=== PATIENT | female | born 1985 | race Caucasian/White ===

== ENCOUNTER → 2017-03-23 | Outpatient (CLI) | payer OTHER ==
[~2017-03-23] MED LIST: CATHETER FLUSH 10 ML SYR IV PRN; HYDR1TAB PO; IOHEXOL 350 MG/ML 100 ML (OMNIPAQUE 350) VIAL IV ONE; LVT.025T PO; NS 100 ML (IVPB) BAG IV ONE
--- NOTE | 2017-03-23 13:23 | Diagnostic Imaging Report ---
PROCEDURE: CT neck soft tissue with contrast. TECHNIQUE: Multiple contiguous axial images were obtained through the neck after the administration of contrast. INDICATION: Neck pain. Difficulty swallowing. 75 mL of Omnipaque 350 is administered intravenously. FINDINGS: The parotid, the submandibular and thyroid glands appear unremarkable. The mucosal pharyngeal space is fairly symmetric with no focal mass seen. There is no lymphadenopathy noted in the cervical chain on either side. The jugular venous and the carotid arterial enhancement on both sides appear normal. The visualized portions of the paranasal sinuses appear clear. The lung apices appear clear. The osseous structures appear grossly unremarkable. IMPRESSION: Unremarkable exam. Dictated by: Dictated on workstation # [id number]
== END ==
LOC: RAD 12:27
PROVIDERS: ATTEND Nurse Practitioner Family
DX: M54.2 Cervicalgia (principal); R13.10 Dysphagia, unspecified
CPT/HCPCS: 70491

== ENCOUNTER → 2017-09-18 | Outpatient (CLI) | payer OTHER ==
[~2017-09-18] MED LIST changes: -CATHETER FLUSH 10 ML SYR IV PRN; -IOHEXOL 350 MG/ML 100 ML (OMNIPAQUE 350) VIAL IV ONE; -NS 100 ML (IVPB) BAG IV ONE
--- NOTE | 2017-09-18 13:36 | Diagnostic Imaging Report ---
INDICATION: Cough and congestion x3 weeks. Comparison with 02/12/2013. FINDINGS: The lungs are well aerated. There are no infiltrates present. There are no masses. The heart is not enlarged. There is no pulmonary edema. No pneumothorax or pleural effusions. No hilar adenopathy. No bony abnormalities. IMPRESSION: Normal PA and lateral chest. Report was faxed to office of Salma Julian by zack at 1:37 p.m. Dictated by: Dictated on workstation # [id number]
== END ==
LOC: RAD 13:11
PROVIDERS: ATTEND Nurse Practitioner Family
DX: R05 Cough (principal); R09.81 Nasal congestion
CPT/HCPCS: 71020

== ENCOUNTER 2019-05-05 07:54 | Outpatient (RCR) | payer OTHER | END 2019-08-03 | disposition home or self-care (01) | LOC: CARD 07:54 | PROVIDERS: ATTEND Nurse Practitioner Family | DX: R00.2 Palpitations (principal) | CPT/HCPCS: 93225; 93226 ==

== ENCOUNTER → 2019-08-17 | Outpatient (CLI) | payer OTHER ==
--- NOTE | 2019-08-17 12:56 | Diagnostic Imaging Report ---
PROCEDURE: US Non-ob pelvis comp/trans. TECHNIQUE: Multiple realtime grayscale images were obtained of the pelvis in various projections endovaginally. Transabdominal imaging was also performed. INDICATION: Pelvic pain. FINDINGS: The uterus measures 6.3 x 5.9 x 3.3 cm. Endometrium is 4 mm in thickness. Tiny echogenic focus within the endometrium is noted measuring 2 mm consistent with a tiny calcification. No myometrial mass is detected. Right ovary measures 3.1 x 3.2 x 1.9 cm and the left ovary measures 3.4 x 3.2 x 2.0 cm. The ovaries contain small follicles. There is blood flow to the ovaries. No adnexal mass or free fluid is seen. Left ovary does contain a 2.3 cm cyst. IMPRESSION: 2.3 cm left ovarian cyst. The study is otherwise unremarkable. Dictated by: Dictated on workstation # [id number]
== END ==
LOC: RAD 11:40
PROVIDERS: ATTEND Nurse Practitioner Family
DX: N83.202 Unspecified ovarian cyst, left side (principal)
CPT/HCPCS: 76830; 76856; 84703

== ENCOUNTER → 2020-03-29 | Outpatient (CLI) | payer OTHER | LOC: LABNPT 08:52 | PROVIDERS: ATTEND Family Medicine | DX: J02.9 Acute pharyngitis, unspecified (principal); R51 Headache; M79.10 Myalgia, unspecified site; R53.83 Other fatigue; Z20.828 Contact with and (suspected) exposure to other viral communicable diseases | CPT/HCPCS: 87635 ==

== ENCOUNTER → 2020-04-16 | Outpatient (CLI) | payer OTHER | LOC: LABNPT 08:13 | PROVIDERS: ATTEND Family Medicine | DX: R05 Cough (principal); R53.83 Other fatigue; R51 Headache; R09.89 Other specified symptoms and signs involving the circulatory and respiratory systems; Z20.828 Contact with and (suspected) exposure to other viral communicable diseases | CPT/HCPCS: 87635 ==

== ENCOUNTER → 2020-04-26 | Outpatient (CLI) | payer OTHER ==
--- NOTE | 2020-04-26 14:59 | Diagnostic Imaging Report ---
PROCEDURE: US Non-ob pelvis comp/trans. TECHNIQUE: Multiple real-time grayscale images were obtained of the pelvis in various projections endovaginally. Transabdominal imaging was also performed. INDICATION: Left ovarian cyst, follow-up. Correlation is made with prior ultrasound from 08/17/2019. FINDINGS: The uterus is anteverted measuring 8.0 x 4.5 x 5.6 cm. Endometrium is 4 mm in thickness. No myometrial mass is detected. Right ovary measures 5.0 x 4.1 x 4.0 cm. Right ovary does contain a 4.0 x 3.3 x 3.4 cm hemorrhagic cyst. Left ovary is not well visualized, but there is a cyst in the left adnexa measuring 2.3 x 2.0 x 2.4 cm. This appears fairly simple and is similar in size to prior exam. Small amount of free fluid is present in the posterior cul-de-sac. IMPRESSION: 1. Development of a complex cystic mass in the right ovary, likely a hemorrhagic cyst measuring 4 cm in size. 2. Stable left adnexal cyst. Dictated by: Dictated on workstation # [id number]
== END ==
LOC: RAD 13:22
PROVIDERS: ATTEND Family Medicine
DX: N83.201 Unspecified ovarian cyst, right side (principal)
CPT/HCPCS: 76830; 76856

== ENCOUNTER → 2020-05-08 | Outpatient (CLI) | payer OTHER ==
[~2020-05-08] MED LIST changes: +CATHETER FLUSH 10 ML SYR IV PRN; +HOLD METFORMIN - RECEIVED CONTRAST 20 ML VIAL IV SCH; +IOHEXOL 350 MG/ML 100 ML (OMNIPAQUE 350) VIAL IV ONE; +NS 100 ML (IVPB) BAG IV ONE
--- NOTE | 2020-05-08 17:10 | Diagnostic Imaging Report ---
INDICATION: Right lower quadrant pain and nausea. TECHNIQUE: Multiple contiguous axial images were obtained through the abdomen and pelvis after the administration of intravenous contrast. All CT scans use one or more of the following dose optimizing techniques: automated exposure control, MA and/or KvP adjustment based on patient size and exam type or iterative reconstruction. COMPARISON: There is no previous abdominal CT for comparison. Comparison made with prior pelvic CT of 03/07/2011. FINDINGS: The visualized portions of the lung bases are clear. There are no pleural fluid collections. There is no free intraperitoneal air. The liver shows no focal lesions. Gallbladder is surgically absent. Spleen, pancreas, and adrenals are normal. Kidneys bilaterally appear unremarkable. There is no hydronephrosis. There is no retroperitoneal mass or adenopathy. There is no ascites. Patient has had previous hernia repair. There is no recurrent hernia. The appendix is not visualized with certainty, but there is no inflammatory reaction in its expected location. There is a complex-appearing lesion in the right adnexa measuring about 2.8 cm. There is a simple-appearing cyst in the left adnexa measuring about 2.3 cm. There is no free fluid. IMPRESSION: Complex-appearing lesion in the right adnexa. Simple cyst in left adnexa as above. Note however that the patient did have similar findings on an ultrasound of 04/26/2020. The appendix is not visualized, but there is no inflammatory reaction at its expected location. Patient has had prior cholecystectomy. Dictated by: Dictated on workstation # [id number]
== END ==
LOC: RAD 16:30
PROVIDERS: ATTEND Family Medicine
DX: N83.201 Unspecified ovarian cyst, right side (principal); N83.8 Other noninflammatory disorders of ovary, fallopian tube and broad ligament; Z90.49 Acquired absence of other specified parts of digestive tract
CPT/HCPCS: 74177

== ENCOUNTER → 2020-06-15 | Outpatient (CLI) | payer OTHER ==
[~2020-06-15] MED LIST changes: -CATHETER FLUSH 10 ML SYR IV PRN; -HOLD METFORMIN - RECEIVED CONTRAST 20 ML VIAL IV SCH; -IOHEXOL 350 MG/ML 100 ML (OMNIPAQUE 350) VIAL IV ONE; -NS 100 ML (IVPB) BAG IV ONE
--- NOTE | 2020-06-15 17:09 | Diagnostic Imaging Report ---
PROCEDURE: US Non-ob pelvis comp/trans. TECHNIQUE: Multiple realtime grayscale images were obtained of the pelvis in various projections endovaginally. Transabdominal imaging was also performed. INDICATION: Follow-up right ovarian cyst. COMPARISON: 04/26/2020, pelvic ultrasound. FINDINGS: The uterus measures 7.2 x 4.1 x 5.3 cm. There is no myometrial mass. The endometrium measures 0.3 cm in thickness. The right ovary measures 4.0 x 3.3 x 2.8 cm. Within the right ovary, there is now an anechoic cyst measuring 2.2 x 2.4 x 2.5 cm. This is either a new follicle versus decreased size of the previously seen cyst. Blood flow is seen within the right ovary by color Doppler imaging. The left ovary measures 2.2 x 3.0 x 2.8 cm. Cyst within the left ovary is stable in size measuring approximately 2.2 x 3.0 cm and occupies the majority of the left ovary. IMPRESSION: 1. Resolution of right ovarian hemorrhagic cyst. 2. Right ovarian physiologic follicles are now present and require no dedicated follow-up imaging. 3. Stable left adnexal simple cyst. Dictated on workstation # [id number]
== END ==
LOC: RAD 14:45
PROVIDERS: ATTEND Obstetrics & Gynecology
DX: N83.201 Unspecified ovarian cyst, right side (principal); N83.8 Other noninflammatory disorders of ovary, fallopian tube and broad ligament
CPT/HCPCS: 76830; 76856

== ENCOUNTER → 2021-01-14 | Outpatient (CLI) | payer OTHER | LOC: CARD 13:30 | PROVIDERS: ATTEND Nurse Practitioner Family | DX: R01.1 Cardiac murmur, unspecified (principal) | CPT/HCPCS: 93306 ==

== ENCOUNTER → 2021-04-18 | Outpatient (CLI) | payer OTHER ==
[~2021-04-18] MED LIST changes: +GADOBUTROL 7.5 MMOL/7.5 ML (GADAVIST) VIAL IV ONE
--- NOTE | 2021-04-18 16:13 | Diagnostic Imaging Report ---
PROCEDURE: MR imaging of the brain with and without contrast. TECHNIQUE: Multiplanar, multisequence MR imaging of the brain was performed with and without contrast. INDICATION: Migraines, greater on the left side. COMPARISON: None. FINDINGS: No abnormal intracranial signal or enhancement. No restricted water diffusion. No hemosiderin deposition or evidence of intracranial hemorrhage. Normal morphology including the major midline structures, sella, posterior fossa and cerebellar pontine angle. No hydrocephalus or extra-axial fluid collections. Normal intracranial flow voids. The orbits are negative. Paranasal sinuses and mastoids are clear. Normal bone marrow signal. IMPRESSION: Normal MRI of the brain without and with IV contrast. No acute findings. Dictated by: Dictated on workstation # [id number]
== END ==
LOC: RAD 15:30
PROVIDERS: ATTEND Family Medicine
DX: G43.909 Migraine, unspecified, not intractable, without status migrainosus (principal)
CPT/HCPCS: 70553

== ENCOUNTER → 2022-05-23 | Outpatient (CLI) | payer OTHER ==
[~2022-05-23] MED LIST changes: -GADOBUTROL 7.5 MMOL/7.5 ML (GADAVIST) VIAL IV ONE
--- NOTE | 2022-05-23 16:16 | Diagnostic Imaging Report ---
INDICATION: Right-sided chest pain. FINDINGS: Heart size and pulmonary vascularity are normal. Lungs are clear. There are no effusions or pneumothoraces. IMPRESSION: No acute abnormality in the chest. Dictated by: Dictated on workstation # [id number]
== END ==
LOC: RAD 14:41
PROVIDERS: ATTEND Physician Assistant
DX: R07.9 Chest pain, unspecified (principal)
CPT/HCPCS: 71046

== ENCOUNTER → 2022-06-10 | Outpatient (CLI) | payer OTHER ==
[~2022-06-10] MED LIST changes: +RT-ALBUTEROL SULF 2.5 MG/3 ML PRE-MIX VIAL INH ONE
== END ==
LOC: CARD 14:05
PROVIDERS: ATTEND Nurse Practitioner Family
DX: R07.9 Chest pain, unspecified (principal); R01.1 Cardiac murmur, unspecified; R06.2 Wheezing
CPT/HCPCS: 93306; 94060; 94726; 94729

== ENCOUNTER 2023-05-20 05:38 | Outpatient (CLI) | payer BC, OTHER ==
[~2023-05-20] VITALS: Ht 172.7 cm; Wt 58.6 kg
[~2023-05-20 05:38] MED LIST changes: -RT-ALBUTEROL SULF 2.5 MG/3 ML PRE-MIX VIAL INH ONE
[2023-05-20] MEDS ORDERED: LEVO88CA4 PO (10:08)
[2023-05-20] MEDS ORDERED: PROP10TA8 PO (10:08)
[2023-05-20] MEDS ORDERED: RIME75TA PO (10:08)
[2023-05-20] MEDS ORDERED: NORE-93 PO (10:13)
== END 2023-05-20 10:24 | disposition home or self-care (01) ==
LOC: PREOP 05:38
PROVIDERS: ATTEND Internal Medicine
DX: Z01.818 Encounter for other preprocedural examination (principal)

== ENCOUNTER 2023-05-29 07:27 | Day surgery (SDC) | payer BC, OTHER ==
--- NOTE | 2023-05-15 08:25 | HISTORY AND PHYSICAL ---
PANENDOSCOPY HISTORY AND PHYSICAL HISTORY OF PRESENT ILLNESS: The patient is a 37-year-old white female, referred for panendoscopy. She had a history of refractory reflux PPI therapy, does pretty well when taking it, definitely has significant heartburn with a need for frequent Tums usage when she has been off of the medication. She has an intermittent clicking sound in her chest when she swallows, but denies dysphagia. Her mother was diagnosed with Murray's, with no reported history of known esophageal or colon cancer that she is aware of in the family. Her father has had colon polyps removed in the past. She had seen a colorectal specialist several years ago, who had recommended an endoscopy at that time with some reported issues with maternal hemorrhoids. The specialists ended up leaving, so to date, she has not accomplished any form of previous endoscopic evaluation. She reports that her weight has been stable. Denies melena. Does have occasional bright red blood per rectum that she has attributed to hemorrhoids. PAST MEDICAL HISTORY: Significant for migraine headaches for which she takes propranolol 10 mg b.i.d. and for acute headaches, Nurtec. She has a history of hypothyroidism, but she is on 88 mcg of L-thyroxine and control in the form of the Loestrin. PAST SURGICAL HISTORY: Significant for inguinal hernia, in 2013, underwent cholecystectomy laparoscopically. FAMILY HISTORY: Mother is living at age of 58 with osteoporosis and Murray's esophagus. Father is living at age of 62, history of colon polyps. No other significant health problems. She has one aunt with ovarian cancer. She is not aware of any other malignancies in the family. SOCIAL HISTORY: She had about a 3-pack smoking history, but quit roughly 10 years ago with occasional small volume alcohol consumption. She works in town as a nurse practitioner. PHYSICAL EXAMINATION: GENERAL: Reveals a white female, normal weight, in no acute distress. VITAL SIGNS: Blood pressure 118/70, weight 129 pounds. HEENT: Unremarkable. Sclerae are nonicteric. CHEST: Clear to auscultation. CARDIOVASCULAR: Reveals a regular rate and rhythm with a I-II/ systolic ejection murmur heard best at the left lower sternal border. There is no evidence of opening snap or diastolic murmur. The murmur is much less prominent at the second right intercostal space and not apparent at the apex. No S3 or S4 noted. ABDOMEN: Soft, supple without mass, organomegaly, or tenderness. EXTREMITIES: Revealed no cyanosis, clubbing or edema. ASSESSMENT AND PLAN: The patient is undergoing panendoscopy for evaluation of refractory reflux as well as family history of Murray's esophagus. She is undergoing diagnostic colonoscopy due to history of intermittent rectal bleeding. Prep instructions were given and questions were answered. Job ID: [id number] DocumentID: [id number] Dictated Date: 05/11/2023 16:42:54 Adult Parole Officer Date: 05/11/2023 17:17:00 Dictated By: ZACHARIAH LEE MD
[~2023-05-29] VITALS: Ht 172.7 cm; Wt 58.6 kg
[~2023-05-29 07:27] MED LIST changes: +LACTATED RINGERS 1,000 ML 1,000 ML IV STA; +LEVO88CA4 PO; +NORE-93 PO; +PROP10TA8 PO; +RIME75TA PO
[2023-05-29] MEDS ORDERED: HURRICAINE EXT TUBE (BENZOCAINE) XX PRN (07:30)
[2023-05-29] MEDS ORDERED: MIDAZOLAM INJ 2 MG/2 ML VIAL ONE (07:43)
--- NOTE | 2023-05-29 07:50 | Pre-Op Note & Conscious Sedat ---
Pre-Operative Progress Note Date H&P Reviewed: May 29, 2023 Time H&P Reviewed: 07:49 History & Physical: H&P Reviewed, Patient Examed, No changes noted Pre-Op Diagnosis: screening colon refractory gerd Moderate Sedation PreProcedure ASA Score 2 Airway Lungs Heart ASA score ASA 1: a normal healthy patient ASA 2: a patient with a mild systemic disease (mid diabetes, controlled hypertension, obesity ASA 3: a patient with a severe systemic disease that limits activity (angina, COPD, prior Myocardial infarction) ASA 4: a patient with an incapacitating disease that is a constant threat to life (CHF, renal failure) ASA 5: a moribund patient not expected to survive 24 hrs. (ruptured aneurysm) ASA 6: a declared brain- patient whose organs are being harvested. For emergent operations, add the letter E after the classification Mallampati Classification Grade 2 Sedation Plan Analgesia, Amnesia, Plan communicated to team members, Discussed options with patient/fam, Discussed risks with patient/fam The patient is an appropriate candidate to undergo the planned procedure, sedation, and anesthesia. The patient immediately re-assessed prior to indication. ZACHARIAH LEE MD May 29, 2023 07:50
[2023-05-29 07:52] VITALS: BP 128/86
[2023-05-29] MEDS ORDERED: proPOfol INJECTION 200 MG/20 ML VIAL IV ONE (08:40)
[2023-05-29 08:46] VITALS: BP 92/56
[2023-05-29 08:51] VITALS: BP 90/53
--- NOTE | 2023-05-29 08:51 | Progress Note-Post Operative ---
Post-Procedure Note Physician (s)/Sap Senior Developer (s) Physician ZACHARIAH LEE MD Pre-Procedure Diagnosis Pre-Procedure Diagnosis: screening colon refractory gerd Post-Procedure Diagnosis Post-operative diagnosis: The patient was placed in the left lateral decubitus position. The endoscope inserted in the oral cavity and under direct visualization the esophagus is unabated. The endoscope was passed down the esophagus to the stomach and second portion of the duodenum. A careful inspection was made as the endoscope withdrawn. Findings: The posterior pharynx epiglottis arytenoid aperture and true and false vocal folds were unremarkable to visual inspection. Proximal mid and distal esophagus were unremarkable. There was evidence for small sliding hiatal hernia with no evidence for erosive esophagitis. A biopsy from the GE junction as well as the midesophagus to evaluate for eosinophilic esophagitis was noted. The cardia fundus antrum pylorus pyloric channel duodenal bulb and second portion of the duodenum were unremarkable to visual inspection with no evidence for gastritis or peptic ulcer disease. Assessment: Small sliding hiatal hernia is present without evidence for erosive esophagitis or overt evidence for Murray's change. Biopsies from the GE junction were obtained for histopathology as well as the midesophagus to rule out evidence for eosinophilic esophagitis. We then proceeded with colonoscopy. Prior to undergoing colonoscopy digital rectal evaluation was performed. Anal suture tone was normal and the perianal reflexes intact. No abnormalities noted were noted vaginal/anal canal just rectal vault. A small nonthrombosed external hemorrhoid was noted at the 10 to 11 o'clock position with no evidence for internal hemorrhoids. The colonoscope was then inserted into the rectum and a direct physician advanced the cecum. The cecum was identified by the indication of the ileocecal valve and the appendiceal orifice. Photographic documentation was obtained. A careful inspection was made as the colonoscope withdrawn. Quality prep was good. Findings: 1 nonthrombosed external hemorrhoid was noted at the 10 to 11 o'clock position. Present the proximal rectum was a 3 mm sessile polyp was photographed and biopsied and ablated with no subsequent blood loss. The sigmoid colon descending colon splenic flexure transverse colon hepatic flexure ascending colon and cecum were unremarkable with no evidence for further neoplasia or diverticular disease. A/P 1. One 3 mm sessile polyp was removed via hot forceps in the proximal rectum with no other colonic abnormalities being appreciated on today's procedure under good prep conditions. Would advocate consideration for repeat screening colonoscopy in 10 years. 2. 1One 1/2 cm nonthrombosed external hemorrhoid that was noted with no evidence for internal hemorrhoids. CC: Dr. Laverne IYER MD. ZACHARIAH LEE MD May 29, 2023 08:51
[2023-05-29 09:05] VITALS: BP 91/53
[2023-05-29 09:26] VITALS: BP 110/68
--- NOTE | 2023-05-29 10:10 | Anesthesia-General Post-Op ---
MAC Patient Condition Mental Status/LOC: Same as Preop Cardiovascular: Satisfactory Nausea/Vomiting: Absent Respiratory: Satisfactory Pain: Controlled Complications: Absent Post Op Complications Complications None Follow Up Care/Instructions Patient Instructions None needed. Anesthesiology Discharge Order Discharge Order Patient was doing well after the procedure with no complaints, stable vital signs, no apparent adverse anesthesia problems. No complications reported per nursing. JANELL ALLEN DO May 29, 2023 10:10
== END 2023-05-29 09:35 | disposition home or self-care (01) ==
LOC: ENDO 07:27
PROVIDERS: ATTEND Internal Medicine
DX: K62.1 Rectal polyp (principal); K44.9 Diaphragmatic hernia without obstruction or gangrene; K64.4 Residual hemorrhoidal skin tags; K21.9 Gastro-esophageal reflux disease without esophagitis; Z87.891 Personal history of nicotine dependence
CPT/HCPCS: 84703; 88305